=== PATIENT | female | born 1985 | race African-American/Black ===

== ENCOUNTER 2025-07-24 14:17 | Emergency (ER) | payer OTHER ==
[~2025-07-24] VITALS: Ht 154.9 cm; Wt 59.0 kg
[2025-07-24 14:22] VITALS: O2SAT 100
[2025-07-24 14:38] VITALS: BP 113/66; PULSE 60; RESP 14; TEMP 36.6; O2SAT 99
== END 2025-07-24 18:41 | disposition left against medical advice (07) ==
LOC: ER 14:17
DX: R51.9 Headache, unspecified (principal); Z53.21 Procedure and treatment not carried out due to patient leaving prior to being seen by health care provider